=== PATIENT | female | born 1950 | race Caucasian/White ===

== ENCOUNTER 2024-09-10 09:59 | Outpatient (CLI) | payer MEDICARE, BC, SELFPAY ==
--- NOTE | 2024-09-10 10:15 | MR_ITS ---
EXAM: MRI of the LEFT SHOULDER, without contrast CLINICAL: Left shoulder pain and limited range of motion. Evaluate for rotator cuff tear. COMPARISONS: X-rays dated 02/28/2024. TECHNICAL: Multiplanar multisequence MRI of the left shoulder was obtained. SEDATION: None. CONTRAST: None. FINDINGS: Rotator cuff: Supraspinatus/Infraspinatus: There is mild tendinosis of the distal supraspinatus tendon with moderate tendinosis of the distal infraspinatus tendon. No evidence of tendon tear and no fatty atrophy of the muscles. Teres minor: No tendinosis, tear or atrophy. Subscapularis: Mild to moderate tendinosis of the tendon without evidence of significant tendon tear. No fatty atrophy of the muscle. Bursae: Subacromial-subdeltoid: Minimal bursal edema. Subcoracoid: No significant bursal fluid. Coracoacromial arch: Acromion morphology: Type II. No os acromiale. Acromiohumeral space: Within normal limits. Coracohumeral space: Within normal limits. Biceps tendon, long head: There is mild partial interstitial tearing of the intra-articular tendon as seen on sagittal series 9 image 10. Mild fluid about the imaged proximal extra articular tendon. No tendon displacement. Glenohumeral joint: Small volume of glenohumeral joint fluid is present with synovitis noted within the axillary and subscapularis recesses. Articular cartilage: There is full-thickness chondral loss throughout the majority of the glenohumeral joint. Capsule: There is irregularity of the inferior glenohumeral ligament which may reflect sequelae of prior sprain injury. Labrum: There is tearing throughout the superior labrum extending into the posterior superior labrum. Ill-defined degenerative changes are seen to involve the remainder of the labrum. No perilabral cyst identified. Bones: No suspicious marrow signal alteration, fracture or dislocation. There is subchondral reactive marrow edema involving the glenoid and superomedial humeral head. No evidence of fracture. Acromioclavicular joint: Mild to moderate changes of arthrosis. No AC joint widening. IMPRESSION: 1. Moderate tendinosis of the distal infraspinatus tendon, mild tendinosis of the distal supraspinatus tendon and mild to moderate tendinosis of the distal subscapularis tendon. No evidence of significant rotator cuff tendon tear. 2. Mild partial interstitial tearing of the intra-articular long head biceps tendon. 3. Full-thickness chondral loss involving the glenohumeral joint. There is tearing throughout the superior labrum extending into the posterior superior labrum with ill-defined degenerative changes involving the remainder of the labrum. 4. Irregularity of the inferior glenohumeral ligament may reflect sequelae of prior sprain injury. 5. 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 JCZ Electronically signed on 09/10/2024 12:33:00 PM by Zane Tillman D.O.
== END 2024-09-10 10:00 | disposition home or self-care (01) ==
PROVIDERS: PCP Internal Medicine; Visit Provider Orthopaedic Surgery
DX: M25.512 Pain in left shoulder (principal); S46.812A Strain of other muscles, fascia and tendons at shoulder and upper arm level, left arm, initial encounter; S43.432A Superior glenoid labrum lesion of left shoulder, initial encounter; M19.012 Primary osteoarthritis, left shoulder
CPT/HCPCS: 73221